=== PATIENT | male | born 1980 | race Caucasian/White ===

== ENCOUNTER 2019-02-07 09:25 | Inpatient (IN) | payer OTHER ==
[~2019-02-07] VITALS: Ht 177.8 cm; Wt 112.0 kg
--- NOTE | ~2019-02-07 | CON ---
[address] [address] CONSULTATION Name: LORE ARAGON Room: [address] IN ..#: [id number] Admission: 02/07/19 Attend Phys: Radha Harris MD Discharge: Date of : 78 Report #: [id number] THIS REPORT FOR: //name// CC: [facility] physician/PCP Radha Harris DICTATED BY: Winnie Nam [facility] DATE OF SERVICE: 02/08/2019 Please note at the time of this dictation, the patient was seen and physically examined by myself. REASON FOR CONSULTATION: Abdominal pain and abnormal CT. HISTORY OF PRESENT ILLNESS: A 38-year-old male who presented to the Emergency Room after having about 5 days' worth of lower abdominal pain that he states that food would exacerbate his pain as well as going from a sitting to standing position. He denied any fever, chills, shortness of breath or any nausea, vomiting or diarrhea. He states his bowels move daily, soft and formed. He has not noticed any bright red blood. He had noted some intermittent chills and with his pain not getting any better, he thought he would come in to be evaluated. The patient does have a history of having kidney stones and he has passed those in the past and he was thinking that possibly this could be another episode. ALLERGIES: No known drug allergies. MEDICATIONS FROM HOME: None. PAST MEDICAL HISTORY: History of kidney stones and hypercalcemia. PAST SURGICAL HISTORY: Negative. FAMILY HISTORY: Negative for any GI or female cancers or any autoimmune disease. SOCIAL HISTORY: Denies any tobacco, alcohol or illegal drug use. REVIEW OF SYSTEMS: Twelve-point review of systems is essentially negative except what is mentioned in HPI. PHYSICAL EXAMINATION: VITAL SIGNS: Temperature 36.6, pulse 82, respirations 18, blood pressure 132/82. HEART: [place] [address] CONSULTATION Name: MAHESHLORE Kaila Room: [address]#: [id number] Admission: 02/07/19 Attend Phys: Radha Harris MD Discharge: Date of : 78 Report #: [id number] LUNGS: Clear. ABDOMEN: Soft, positive bowel sounds in all 4 quadrants with tenderness noted in that left lower quadrant. LABORATORY DATA: Hemoglobin 13.3; white count is 11.3, down from 13 on admission; platelets 210. GFR 75. CT of the abdomen and pelvis showed a fatty infiltrate in the liver, right renal calculi that is nonobstructing and he has got segmental bowel wall thickening with pericolonic mesenteric and inflammatory changes of the sigmoid colon. IMPRESSION: 1. Abdominal pain. 2. Abnormal CT. 3. Leukocytosis. 4. Fatty liver disease. PLAN: 1. Colonoscopy tomorrow with Dr. Crow. 2. Clear liquids today. 3. Continue his antibiotics, Cipro and Flagyl. 4. Further recommendations to be made after the procedure has been performed. Thank you for allowing us to participate in this patient's care. Please do not hesitate to call with any questions in regard to this consult. By: [id number] Coronado MD /nt
[2019-02-07 09:37] VITALS: BP 152/93
[2019-02-07 10:04] LABS: ABSOLUTE BASOPHILS 0.1 thou/uL (0.0-0.2); ABSOLUTE EOSINOPHILS 0.5 thou/uL (0.0-0.7); ABSOLUTE LYMPHOCYTES 1.6 thou/uL (0.8-5.3); ABSOLUTE MONOCYTES 1.3 thou/uL (0.0-1.2); ABSOLUTE NEUTROPHILS 9.6 thou/uL (1.6-8.1); BASOPHILS 0.5 %; EOSINOPHILS 3.6 %; HEMATOCRIT 42.2 % (42.0-52.0); HEMOGLOBIN 14.1 gm/dL (14.0-18.0); LYMPHOCYTES 12.2 %; MCH 28.7 pg (26.0-34.0); MCHC 33.3 g/dL (28.0-37.0); MCV 86.1 fL (80.0-100.0); MONOCYTES 10.3 %; MPV 8.4 fl. (7.2-11.1); NUCLEATED RBCS 0 /100WBC; PLATELET COUNT* 218 thou/uL (150-400); POLYS 73.4 %; RDW-CV 14.6 % (10.5-14.5)
[2019-02-07 10:08] LABS: URINE BILIRUBIN NEGATIVE (Negative); URINE BLOOD TRACE (Negative); URINE CLARITY CLEAR; URINE COLOR YELLOW; URINE GLUCOSE-RANDOM NEGATIVE (Negative); URINE KETONES NEGATIVE (Negative); URINE LEUKOCYTES-REFLEX NEGATIVE (Negative); URINE NITRITE-REFLEX NEGATIVE (Negative); URINE PROTEIN NEGATIVE (Negative); URINE SPECIFIC GRAVITY 1.025 (1.005-1.030); URINE UROBILINOGEN 0.2 E.U./dl (0.2-1.0)
[2019-02-07 10:08] LABS: CALCIUM 8.7 mg/dL (8.5-10.1); CREATININE 0.9 mg/dL (0.6-1.3); POTASSIUM 3.7 mmol/L (3.5-5.1)
[2019-02-07 10:12] LABS: ALBUMIN 3.7 g/dL (3.4-5.0); TOTAL BILIRUBIN 0.4 mg/dL (<0.1-1.0); TOTAL PROTEIN 7.6 g/dL (6.4-8.2)
--- NOTE | 2019-02-07 11:43 | NUR ---
RICHARD NOTIFIED UPON PT RETURN FROM CT. PT WAS NOT CONNECTED TO MONITOR HE WAS NOT CONNECTED PRIOR TO CT
[2019-02-07 13:55] VITALS: BP 138/82
--- NOTE | 2019-02-07 14:15 | NUR ---
Pt to room 119 via cart. Pt oriented to room,call light within in reach. at Bs and updated on plan of care
[2019-02-07] MEDS ORDERED: NOHOMEMEDICATIONS (14:18)
[2019-02-07 21:45] VITALS: BP 119/64
[2019-02-08 04:02] LABS: HEMATOCRIT 40.6 % (42.0-52.0); HEMOGLOBIN 13.3 gm/dL (14.0-18.0); MCH 28.5 pg (26.0-34.0); MCHC 32.7 g/dL (28.0-37.0); MPV 8.5 fl. (7.2-11.1); RBC 4.66 mil/uL (4.50-6.00); RDW-CV 13.9 % (10.5-14.5); WBC 11.3 thou/uL (4.0-11.0)
[2019-02-08 04:23] LABS: ALBUMIN 3.2 g/dL (3.4-5.0); CALCIUM 8.4 mg/dL (8.5-10.1); CREATININE 1.1 mg/dL (0.6-1.3); POTASSIUM 3.5 mmol/L (3.5-5.1); TOTAL BILIRUBIN 0.5 mg/dL (<0.1-1.0)
--- NOTE | 2019-02-08 05:08 | NUR ---
PT ALERT AND ORIENTED. VITALS STABLE RA. MEDS GIVEN ORDERED. PT DENIED PAIN. NO NAUSEA OR VOMITING. NPO AT MIDNIGHT. PT SLEPT THROUGH THE NIGHT. HOURLY ROUNDING COMPLETED. WILL CONTINUE TO MONITOR.
[2019-02-08 08:00] VITALS: BP 132/82
--- NOTE | 2019-02-08 10:41 | NUR ---
MET WITH PT TO DISCUSS HOME SITUATION/DC PLANNING. PT LIVES WITH AND KIDS, WORKS AND IS INDEPENDENT AND ACTIVE. DENIES DC NEEDS, PLANS TO RETURN HOME. PT DOESN'T HAVE A PCP, SUGGESTED HE CONSIDER IT. HAS A DR SHE SEES. WILL FOLLOW
[2019-02-08 16:30] VITALS: BP 114/77
--- NOTE | 2019-02-08 18:17 | NUR ---
PT UP IN ROOM WITH STEADY GAIT. IVF INFUSING. PT TOLERATING CLEAR LIQUIDS WELL. DENIES ABD PAIN OR N/V. BOWEL PREP STARTED THIS PM
[2019-02-08 20:00] VITALS: BP 128/79
[2019-02-09 03:34] LABS: ABSOLUTE BASOPHILS 0.1 thou/uL (0.0-0.2); ABSOLUTE EOSINOPHILS 0.5 thou/uL (0.0-0.7); ABSOLUTE LYMPHOCYTES 1.7 thou/uL (0.8-5.3); ABSOLUTE MONOCYTES 1.2 thou/uL (0.0-1.2); ABSOLUTE NEUTROPHILS 7.1 thou/uL (1.6-8.1); BASOPHILS 0.6 %; EOSINOPHILS 4.5 %; HEMATOCRIT 40.8 % (42.0-52.0); HEMOGLOBIN 13.7 gm/dL (14.0-18.0); LYMPHOCYTES 15.8 %; MCH 28.8 pg (26.0-34.0); MCHC 33.6 g/dL (28.0-37.0); MCV 85.7 fL (80.0-100.0); MONOCYTES 11.2 %; MPV 7.9 fl. (7.2-11.1); NUCLEATED RBCS 0 /100WBC; PLATELET COUNT* 238 thou/uL (150-400); POLYS 67.9 %; RBC 4.77 mil/uL (4.50-6.00); RDW-CV 14.3 % (10.5-14.5); WBC 10.5 thou/uL (4.0-11.0)
[2019-02-09 04:05] LABS: CALCIUM 8.4 mg/dL (8.5-10.1); CREATININE 0.9 mg/dL (0.6-1.3); POTASSIUM 3.6 mmol/L (3.5-5.1)
--- NOTE | 2019-02-09 06:35 | NUR ---
Alert and oriented x 4. He is up independently in the room. He did bowel prep last evening and said he is having clear,yellow results. He denies pain or nausea. He has slept well. Consent signed for colonscopy.
[2019-02-09 07:50] VITALS: BP 127/80
[2019-02-09 08:48] VITALS: BP 127/80
[2019-02-09 09:22] VITALS: BP 127/80
[2019-02-09 16:52] VITALS: BP 122/77
--- NOTE | 2019-02-09 17:01 | NUR ---
PT REMAINED ALERT AND ORIENTED. PT RESTING IN ROOM. PT DENIED ANY FURTHER NEEDS AT THIS TIME. FALL RISK PRECAUTIONS IN PLACE. HOURLY ROUNDING COMPLETED. WILL CONTINUE TO MONITOR.
[2019-02-09 20:00] VITALS: BP 128/82
[2019-02-10 04:30] LABS: ABSOLUTE EOSINOPHILS 0.3 thou/uL (0.0-0.7); ABSOLUTE LYMPHOCYTES 1.9 thou/uL (0.8-5.3); ABSOLUTE NEUTROPHILS 6.2 thou/uL (1.6-8.1); BASOPHILS 0.5 %; EOSINOPHILS 3.6 %; HEMATOCRIT 39.5 % (42.0-52.0); HEMOGLOBIN 13.5 gm/dL (14.0-18.0); LYMPHOCYTES 20.2 %; MCH 29.2 pg (26.0-34.0); MCHC 34.1 g/dL (28.0-37.0); MCV 85.6 fL (80.0-100.0); MONOCYTES 10.4 %; MPV 8.3 fl. (7.2-11.1); NUCLEATED RBCS 0 /100WBC; PLATELET COUNT* 234 thou/uL (150-400); POLYS 65.3 %; RBC 4.61 mil/uL (4.50-6.00); RDW-CV 13.9 % (10.5-14.5); WBC 9.4 thou/uL (4.0-11.0)
[2019-02-10 04:34] LABS: ALBUMIN 3.2 g/dL (3.4-5.0); CALCIUM 8.5 mg/dL (8.5-10.1); POTASSIUM 3.9 mmol/L (3.5-5.1); TOTAL BILIRUBIN 0.4 mg/dL (<0.1-1.0)
[2019-02-10 06:15] LABS: ESR (SEDRATE) 35 mm/hr (0-15)
[2019-02-10 09:07] VITALS: BP 117/74
[2019-02-10] MEDS ORDERED: FLAGYL500 M1 PO (10:08)
[2019-02-10] MEDS ORDERED: CIPRO500 MG PO (10:08)
[2019-02-10 10:32] VITALS: BP 117/74
[2019-02-10 10:51] VITALS: BP 117/74
--- NOTE | 2019-02-10 10:52 | NUR ---
PT GIVEN DISCHARGE INFORMATION, CARE NOTES, AND PRESCRIPTIONS. IV REMOVED. FALL RISK PRECAUTIONS IN PLACE. HOURLY ROUNDING COMPLETED. PT DENIED ANY FURTHER QUESTIONS OR NEEDS AT THIS TIME. PT BELONGINGS GATHERED. PT LEFT AMBULTORY TO HOME.
== END 2019-02-10 11:17 | disposition home or self-care (01) | DRG 392 ==
LOC: M.ERS 09:25 → M.ORTHSURG 12:35 → M.TBA-ER 12:35 → M.ORTHSURG 14:11
PROVIDERS: Internal Medicine Gastroenterology; Personal Emergency Response Attendant; Surgery; ADMIT Family Medicine
PROC: 0DJD8ZZ Inspection of Lower Intestinal Tract, Via Natural or Artificial Opening Endoscopic (ICD-10-PCS; principal; 2019-02-09)
DX: K57.32 Diverticulitis of large intestine without perforation or abscess without bleeding (principal); K52.9 Noninfective gastroenteritis and colitis, unspecified; N20.0 Calculus of kidney; K76.0 Fatty (change of) liver, not elsewhere classified; D72.829 Elevated white blood cell count, unspecified; Z87.442 Personal history of urinary calculi

== ENCOUNTER 2019-10-18 18:03 | Inpatient (IN) | payer OTHER ==
[~2019-10-18] VITALS: Ht 177.8 cm; Wt 112.8 kg
[~2019-10-18 18:03] MED LIST: CIPRO500 MG PO; FLAGYL500 M1 PO; NOHOMEMEDICATIONS
[2019-10-18 18:12] VITALS: BP 159/103
[2019-10-18 18:38] LABS: ABSOLUTE BASOPHILS 0.1 thou/uL (0.0-0.2); ABSOLUTE EOSINOPHILS 0.6 thou/uL (0.0-0.7); ABSOLUTE LYMPHOCYTES 2.3 thou/uL (0.8-5.3); ABSOLUTE MONOCYTES 0.9 thou/uL (0.0-1.2); BASOPHILS 0.8 %; EOSINOPHILS 5.8 %; HEMATOCRIT 41.9 % (42.0-52.0); HEMOGLOBIN 14.3 gm/dL (14.0-18.0); LYMPHOCYTES 23.5 %; MCH 29.1 pg (26.0-34.0); MCHC 34.1 g/dL (28.0-37.0); MCV 85.3 fL (80.0-100.0); MONOCYTES 9.2 %; MPV 8.1 fl. (7.2-11.1); NUCLEATED RBCS 0 /100WBC; PLATELET COUNT* 210 thou/uL (150-400); POLYS 60.7 %; RBC 4.91 mil/uL (4.50-6.00); RDW-CV 14.5 % (10.5-14.5); WBC 9.9 thou/uL (4.0-11.0)
[2019-10-18 18:45] LABS: CREATININE 1.1 mg/dL (0.6-1.3)
[2019-10-18 18:50] LABS: ALBUMIN 4.3 g/dL (3.4-5.0); TOTAL BILIRUBIN 0.3 mg/dL (<0.1-1.0); TOTAL PROTEIN 7.4 g/dL (6.4-8.2)
[2019-10-18 21:37] LABS: URINE BLOOD 3+ (Negative); URINE CLARITY SL CLOUDY; URINE COLOR BROWN; URINE GLUCOSE-RANDOM NEGATIVE (Negative); URINE KETONES 1+ (Negative); URINE LEUKOCYTES-REFLEX NEGATIVE (Negative); URINE NITRITE-REFLEX NEGATIVE (Negative); URINE PROTEIN 2+ (Negative); URINE SPECIFIC GRAVITY >= 1.030 (1.005-1.030); URINE UROBILINOGEN 0.2 E.U./dl (0.2-1.0)
[2019-10-18 21:38] LABS: URINE BILIRUBIN 1+ (Negative)
[2019-10-18 21:45] LABS: AMORPHOUS URATES Moderate /LPF (None Seen); FINE GRANULAR CASTS 0-3 Few /LPF (None Seen); HYALINE CASTS 0-3 Few /LPF (None Seen); MUCUS 4-6 Moderate strn/LPF (None Seen); SQUAMOUS 0-3 Few /LPF (0-3); URINE RBC >20 Many /HPF (0-2); URINE WBC-REFLEX 6-15 Few /HPF (0-5)
[2019-10-18 21:46] LABS: ICTOTEST (BILI CONFIRMATORY) Negative (Negative)
[2019-10-18 22:43] VITALS: BP 99/62
[2019-10-18 22:55] VITALS: BP 126/81
[2019-10-19 03:04] VITALS: BP 109/70
[2019-10-19 09:00] VITALS: BP 114/69
[2019-10-19 10:04] LABS: HEMATOCRIT 38.8 % (42.0-52.0); HEMOGLOBIN 13.4 gm/dL (14.0-18.0); MCH 29.5 pg (26.0-34.0); MCHC 34.4 g/dL (28.0-37.0); MCV 85.6 fL (80.0-100.0); MPV 8.2 fl. (7.2-11.1); RBC 4.54 mil/uL (4.50-6.00); RDW-CV 14.4 % (10.5-14.5); WBC 8.8 thou/uL (4.0-11.0)
[2019-10-19 10:18] LABS: CALCIUM 8.1 mg/dL (8.5-10.1); POTASSIUM 3.7 mmol/L (3.5-5.1)
[2019-10-19] MEDS ORDERED: ZOFRAN ODT4 MG DISSOLVE (13:09)
[2019-10-19] MEDS ORDERED: SENOKOT-S TABL1 EACH PO (13:09)
[2019-10-19] MEDS ORDERED: KEFLEX500 M1 PO (13:09)
[2019-10-19] MEDS ORDERED: FLOMAX0.4 MG PO (13:09)
[2019-10-19] MEDS ORDERED: NORCO 5-325 TA1 EAC1 PO (13:26)
[2019-10-19 14:48] VITALS: BP 114/69
== END 2019-10-19 15:15 | disposition home or self-care (01) | DRG 690 ==
LOC: M.ERS 18:03 → M.TBA-ER 21:54 → M.ORTHSURG 21:54
PROVIDERS: Nurse Practitioner Adult Health; Nurse Practitioner Family; ADMIT Internal Medicine
DX: N13.6 Pyonephrosis (principal); K59.00 Constipation, unspecified; Z87.442 Personal history of urinary calculi; Z79.899 Other long term (current) drug therapy